=== PATIENT | female | born 1990 | race African-American/Black ===

== ENCOUNTER 2019-10-14 07:16 | Emergency (ER) | payer MEDICAID ==
[~2019-10-14] VITALS: Ht 167.6 cm; Wt 86.2 kg
[~2019-10-14 07:16] MED LIST: ACYC1CAP23 PO; PREN-145 OR
[2019-10-14 07:19] VITALS: BP 132/79
[2019-10-14] MEDS ORDERED: cefTRIAXone SOD 1,000 MG VL IM ONE (08:00)
== END 2019-10-14 08:30 | disposition home or self-care (01) ==
LOC: ER 07:16
DX: J20.9 Acute bronchitis, unspecified (principal); J03.90 Acute tonsillitis, unspecified
CPT/HCPCS: 71046; 96372; 99283; J0696

== ENCOUNTER 2021-04-15 17:06 | Emergency (ER) | payer MEDICAID ==
[~2021-04-15] VITALS: Ht 165.1 cm; Wt 83.9 kg
[2021-04-15 17:29] VITALS: BP 123/75
[2021-04-15 18:42] LABS: Urine Bacteria NONE SEEN /hpf (None Seen); Urine Blood Negative /uL (Negative); Urine Mucus FEW (None Seen); Urine Specific Gravity 1.028 (1.001-1.035); Urine WBC 1 /hpf (0 - 5)
== END 2021-04-15 22:34 | disposition left against medical advice (07) ==
LOC: ER 17:06
DX: O20.8 Other hemorrhage in early pregnancy (principal); Z3A.00 Weeks of gestation of pregnancy not specified; Z53.21 Procedure and treatment not carried out due to patient leaving prior to being seen by health care provider
CPT/HCPCS: 81001; 81025

== ENCOUNTER 2021-07-21 18:20 | Observation (INO) | payer MEDICAID ==
[2021-07-21] MEDS ORDERED: ACETAMINOPHEN 500 MG TAB PO ONE (19:30)
[2021-07-21] MEDS ORDERED: METOCLOPRAMIDE HCL 10 MG TAB PO ONE (19:30)
[2021-07-21] MEDS ORDERED: LACTATED RINGER'S 1,000 ML IV ONE (20:15)
== END 2021-07-21 21:31 | disposition home or self-care (01) ==
LOC: LDRP 18:20
PROVIDERS: ADMIT Obstetrics & Gynecology Obstetrics; ATTEND Obstetrics & Gynecology Obstetrics
DX: O26.892 Other specified pregnancy related conditions, second trimester (principal); R51.9 Headache, unspecified; Z3A.22 22 weeks gestation of pregnancy
CPT/HCPCS: 59025; 81002; 94760; 96360; 96361; G0378; J8597

== ENCOUNTER 2021-08-27 14:41 | Observation (INO) | payer MEDICAID ==
[2021-08-27] MEDS ORDERED: PROG1CRE VG (15:02)
== END 2021-08-27 15:48 | disposition home or self-care (01) ==
LOC: LDRP 14:41
PROVIDERS: ADMIT Obstetrics & Gynecology; ATTEND Obstetrics & Gynecology
DX: O60.02 Preterm labor without delivery, second trimester (principal); O99.352 Diseases of the nervous system complicating pregnancy, second trimester; G43.909 Migraine, unspecified, not intractable, without status migrainosus; Z3A.27 27 weeks gestation of pregnancy; Z87.891 Personal history of nicotine dependence; Z53.21 Procedure and treatment not carried out due to patient leaving prior to being seen by health care provider
CPT/HCPCS: 59025; 81002; 94760; G0378; G0379

== ENCOUNTER 2021-09-02 07:31 | Observation (INO) | payer MEDICAID ==
[~2021-09-02 07:31] MED LIST changes: -ACYC1CAP23 PO; +PROG1CRE VG
[2021-10-10] MEDS ORDERED: NIF10C PO (11:48)
== END 2021-10-10 12:21 | disposition home or self-care (01) ==
LOC: LDRP 10-10 11:34
PROVIDERS: ADMIT Obstetrics & Gynecology; ATTEND Obstetrics & Gynecology
DX: O60.03 Preterm labor without delivery, third trimester (principal); Z3A.33 33 weeks gestation of pregnancy; Z87.891 Personal history of nicotine dependence
CPT/HCPCS: 59025; 76818; 81002; G0378

== ENCOUNTER 2021-10-03 01:36 | Emergency (ER) | payer MEDICAID ==
[~2021-10-03] VITALS: Ht 165.1 cm; Wt 90.7 kg
[2021-10-03 01:36] VITALS: BP 111/68
[2021-10-03] MEDS ORDERED: ACETAMINOPHEN 500 MG TAB PO ONE (02:45)
== END 2021-10-03 05:45 | disposition left against medical advice (07) ==
LOC: ER 01:36
DX: M25.561 Pain in right knee (principal); Z53.21 Procedure and treatment not carried out due to patient leaving prior to being seen by health care provider

== ENCOUNTER 2021-10-17 08:47 | Observation (INO) | payer MEDICAID ==
[~2021-10-17 08:47] MED LIST changes: +NIF10C PO
[2021-10-30] MEDS ORDERED: ACYC1CAP23 PO (13:17)
== END 2021-10-30 13:33 | disposition home or self-care (01) ==
LOC: LDRP 10-30 12:13
PROVIDERS: ADMIT Obstetrics & Gynecology; ATTEND Obstetrics & Gynecology
DX: O60.03 Preterm labor without delivery, third trimester (principal); O26.893 Other specified pregnancy related conditions, third trimester; M32.9 Systemic lupus erythematosus, unspecified; Z3A.36 36 weeks gestation of pregnancy
CPT/HCPCS: 59025; 81002; G0378

== ENCOUNTER 2021-11-11 11:42 | Observation (INO) | payer MEDICAID ==
[~2021-11-11 11:42] MED LIST changes: +ACYC1CAP23 PO; -NIF10C PO; -PROG1CRE VG
== END 2021-11-11 14:18 | disposition home or self-care (01) ==
LOC: LDRP 11:42
PROVIDERS: ADMIT Obstetrics & Gynecology; ATTEND Obstetrics & Gynecology
DX: O99.113 Other diseases of the blood and blood-forming organs and certain disorders involving the immune mechanism complicating pregnancy, third trimester (principal); M32.9 Systemic lupus erythematosus, unspecified; O26.893 Other specified pregnancy related conditions, third trimester; M54.9 Dorsalgia, unspecified; R10.9 Unspecified abdominal pain; Z3A.38 38 weeks gestation of pregnancy
CPT/HCPCS: 59025; 76818; 81002; G0378

== ENCOUNTER 2021-11-18 11:20 | Inpatient (IN) | payer MEDICAID ==
[~2021-11-18] VITALS: Ht 165.1 cm; Wt 97.5 kg
[2021-11-21] MEDS ORDERED: BUTORPHANOL TARTRATE 2 MG/1 ML VIAL IV PRN ×2 (08:45)
[2021-11-21] MEDS ORDERED: LIDOCAINE 2%HCL (LOCAL ANESTH.) INJ 20ML MDV IJ PRN (08:45)
[2021-11-21] MEDS ORDERED: WITCH HAZEL-GLYCERIN PAD TOP PRN (08:45)
[2021-11-21] MEDS ORDERED: PHISODERM TOP SOLN 240ML BTL TOP PRN (08:45)
[2021-11-21] MEDS ORDERED: LACTATED RINGER'S 1,000 ML IV SCH (08:45)
[2021-11-21] MEDS ORDERED: PROMETHAZINE HCL 25 MG/ML 1ML IV PRN (08:45)
[2021-11-21] MEDS ORDERED: DERMOPLAST 60ML BOTTLE TOP PRN (08:45)
[2021-11-21] MEDS ORDERED: PENICILLIN G POT 5MIL/D5 50ML 50 ML IV ONE (09:00)
[2021-11-21 09:16] LABS: Basophils # (auto) 0.1 10 ^3/uL (0-0.2); Basophils % (auto) 0.7 % (0.0-2.0); Eosinophils # (auto) 0.1 10 ^3/uL (0-0.8); Hematocrit 39.7 % (36.0-46.0); Hemoglobin 13.6 g/dL (12.2-16.2); Lymphocytes # (auto) 2.3 10 ^3/uL (0.4-5.4); Lymphocytes % (auto) 31.8 % (10.0-50.0); Mean Corpuscular Hemoglobin 31.2 pg (28.0-32.0); Mean Corpuscular Hgb Conc. 34.3 g/dL (32.0-36.0); Monocytes # (auto) 0.7 10 ^3/uL (0-1.3); Monocytes % (auto) 9.3 % (0.0-12.0); Neutrophils # (auto) 4.2 10 ^3/uL (1.6-8.6); Neutrophils % (auto) 57.2 % (37.0-80.0); Red Blood Cells 4.37 10^6/uL (4.0-5.20); White Blood Cell 7.3 10^3/uL (4.4-10.8)
[2021-11-21 09:25] LABS: INR 0.94 (0.9-1.15); Partial Thromboplastin Time 29.5 sec (23.6-33.0)
[2021-11-21 09:55] LABS: Potassium 3.7 mmol/L (3.5-5.1)
[2021-11-21 09:56] LABS: Urine Bacteria FEW /hpf (None Seen); Urine Blood Negative /uL (Negative); Urine Specific Gravity 1.013 (1.001-1.035); Urine WBC 5 /hpf (0 - 5)
[2021-11-21 10:12] LABS: Albumin 2.5 g/dL (3.4-5.0); BUN/Creatinine Ratio 11.8; Bilirubin, Total 0.4 mg/dL (0.2-1.0); Calcium 8.8 mg/dL (8.5-10.1); Total Protein 6.4 g/dL (6.4-8.2)
[2021-11-21 10:12] LABS: Barbiturate Scree,Urine NEGATIVE (NEGATIVE); Cannabinoid Screen, Urine NEGATIVE (NEGATIVE)
[2021-11-21 10:25] LABS: Alcohol, Urine < 3.0 mg/dL (0-10); Amphetamine Screen, Urine NEGATIVE (NEGATIVE); Benzodiazephine Screen, Urine NEGATIVE (NEGATIVE); Cocaine Screen, Urine NEGATIVE (NEGATIVE); Opiate Scree,Urine NEGATIVE (NEGATIVE); Phencyclidine Screen, Urine NEGATIVE (NEGATIVE)
[2021-11-21] MEDS: PENICILLIN G POTASSIUM 2,500,000 UNITS in D5W 5% 50 ML IV SCH ×2 (13:50→17:00)
[2021-11-21] MEDS ORDERED: LACT. RINGERS/OXYTOCIN 20UNITS 500 ML IV ONE ×2 (14:00→14:30)
[2021-11-21] MEDS ORDERED: TERBUTALINE SULFATE 1 MG/ML 1ML VIAL SC PRN (14:00)
[2021-11-21] MEDS ORDERED: LACT. RINGERS/OXYTOCIN 20UNITS 1,000 ML IV SCH (14:00)
[2021-11-21] MEDS ORDERED: ROPIVACAINE HCL 200 ML EPI SCH (14:30)
[2021-11-21] MEDS ORDERED: LACTATED RINGER'S 1,000 ML IV ONE (14:30)
[2021-11-21] MEDS ORDERED: ePHEDrine SULFATE 50 MG/ML AMP IV ONE (14:30)
[2021-11-21] MEDS ORDERED: fentaNYL CITRATE 100 MCG/2 ML VL IV ONE (14:30)
[2021-11-21] MEDS ORDERED: NALOXONE HCL 0.4 MG/ML VIAL IV ONE (14:30)
[2021-11-21] MEDS ORDERED: METHYLERGONOVINE MALEATE 0.2 MG/ML AMP IM ONE (15:00)
[2021-11-21] MEDS ORDERED: ACETAMINOPHEN 325 MG TAB PO PRN (17:30)
[2021-11-21] MEDS: IBUPROFEN 600 MG TAB PO PRN ×2 (17:39→23:11)
[2021-11-21 19:30] VITALS: BP 137/77
[2021-11-21 23:00] VITALS: BP 126/68
[2021-11-22 03:00] VITALS: BP 127/76
[2021-11-22 07:00] VITALS: BP 111/71
[2021-11-22 08:07] LABS: RPR Non Reactive (Non Reactive)
[2021-11-22 11:15] VITALS: BP 110/67
[2021-11-22] MEDS: IBUPROFEN 600 MG TAB PO PRN (11:23)
[2021-11-22 15:30] VITALS: BP 108/67
[2021-11-22 18:45] VITALS: BP 122/77
== END 2021-11-22 18:51 | disposition home or self-care (01) | DRG 560 ==
LOC: LDRP 11-21 07:52 → OBSVTOIN 11-21 08:34
PROVIDERS: ADMIT Obstetrics & Gynecology; ATTEND Obstetrics & Gynecology
PROC: 10E0XZZ Delivery of Products of Conception, External Approach (ICD-10-PCS; principal; 2021-11-21)
DX: O77.0 Labor and delivery complicated by meconium in amniotic fluid (principal); Z37.0 Single live birth; O99.824 Streptococcus B carrier state complicating childbirth; Z20.822 Contact with and (suspected) exposure to COVID-19; Z3A.39 39 weeks gestation of pregnancy
CPT/HCPCS: 36415; 59025; 59409; 80053; 80307; 81001; 81002; 85025; 85610; 85730; 86592; 86850; 86900; 86901; 87426; 94760; 96360; 96361; 96365; 96366; G0378; J2540; J2590; J7060

== ENCOUNTER 2022-02-16 20:47 | Emergency (ER) | payer MEDICAID, OTHER ==
[~2022-02-16] VITALS: Ht 165.1 cm; Wt 90.7 kg
[2022-02-16 20:48] VITALS: BP 121/72
== END 2022-02-16 23:53 | disposition home or self-care (01) ==
LOC: ER 20:47
DX: S96.912A Strain of unspecified muscle and tendon at ankle and foot level, left foot, initial encounter (principal); S16.1XXA Strain of muscle, fascia and tendon at neck level, initial encounter; Z79.899 Other long term (current) drug therapy; V43.52XA Car driver injured in collision with other type car in traffic accident, initial encounter; Y93.89 Activity, other specified; Y92.89 Other specified places as the place of occurrence of the external cause; Y99.8 Other external cause status
CPT/HCPCS: 73562; 73610